=== PATIENT | female | born 1985 | race Caucasian/White ===

== ENCOUNTER → 2017-10-26 | Outpatient (CLI) | payer OTHER ==
--- NOTE | 2017-10-27 07:31 | XCELERA REPORT ---
[address] [address] Lower Extremity Arterial Evaluation Name: RAFAEL MONTEIRO Age: 31 yrs Gender: Female : 1985 Patient Status: Outpatient Patient Location: Study Date: 10/26/2017 02:16 PM Procedure: A color flow and duplex scan of the lower extremity arteries was performed bilaterally with velocity and waveform anaylsis. 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 0 % stenosis . Ankle Brachial index is 1.1. Left Side Arterial Evaluation Normal velocity and triphasic waveforms noted from the Common Femoral artery to the infregeniculate vessels. 0 % stenosis . Ankle Brachial index is 1.1. Interpretation Summary No hemodynamically significant lesions in the bilateral lower extremities, on duplex imaging, at rest. : FLORENCIA ROSADO > Kevan Bray
== END ==
LOC: SP 14:04
PROVIDERS: ATTEND Nurse Practitioner
DX: G62.9 Polyneuropathy, unspecified (principal)
CPT/HCPCS: 93925